=== PATIENT | male | born 1960 | race Caucasian/White ===

== ENCOUNTER 2017-04-06 14:49 | Emergency (ER) | payer OTHER ==
[~2017-04-06] VITALS: Ht 175.3 cm; Wt 77.1 kg
[2017-04-06] MEDS ORDERED: NEOMYC-POLYM-DEX5 ML OP (15:26)
[2017-04-06] MEDS ORDERED: BP MED (15:33)
[2017-04-06 17:10] VITALS: BP 138/88
== END 2017-04-06 15:28 | disposition home or self-care (01) ==
LOC: ER 14:49
DX: S05.01XA Injury of conjunctiva and corneal abrasion without foreign body, right eye, initial encounter (principal); I10 Essential (primary) hypertension; Z88.0 Allergy status to penicillin; W22.8XXA Striking against or struck by other objects, initial encounter; Y93.89 Activity, other specified; Y92.89 Other specified places as the place of occurrence of the external cause; Y99.0 Civilian activity done for income or pay